=== PATIENT | male | born 1950 | race American Indian/Alaskan Native ===

== ENCOUNTER 2017-10-27 02:17 | Observation (INO) | payer MEDICARE ==
[2017-10-27] MEDS ORDERED: DILAUDID IV ONE (03:03)
[2017-10-27] MEDS ORDERED: ZOFRAN IV ONE (03:03)
--- NOTE | 2017-10-27 03:12 | Emergency Department Report ---
ED Chest Pain HPI - General Chief Complaint: Back Pain/Injury Stated Complaint: CHEST PAIN Time Seen by Provider: 10/27/17 03:07 Source: EMS Mode of arrival: Stretcher Limitations: No Limitations - History of Present Illness Initial Comments: 67-year-old male past medical history of esophageal stricture requiring dilation chronic back pain to the hospital complaining of back pain and chest pain. Patient has chronic back pain denies recent injury. He takes Percocet 10 /325 for pain. Despite taking his Percocet pain worsened this evening. Patient states that he had sharp pain in his chest that then radiated to his back. Patient received aspirin and nitroglycerin in route. He currently denies chest pain but the pain of mid back pain. No reports of nausea, vomiting , diaphoresis, shortness of breath, cough, fever, focal weakness, or numbness. Pain is 7/10 in intensity constant, sharp, worse with movement and deep inspiration. Patient repeatedly asking for pain medication and repeatedly stating he is cold upon arrival. [place] prescription drug monitoring site reviewed and patient has described 120 tablets of Percocet 10/[address] Olmedo with last prescription filled on 10/19/2017. - Related Data Home Medications Medication Instructions Recorded Confirmed Last Taken FLUoxetine HCL [FLUoxetine] 2.5 ml PO QDAY 04/20/14 10/27/17 04/20/14 hydrOXYzine HCL [Atarax] 25 mg PO QHS 04/20/14 10/27/17 04/20/14 Previous Rx's Medication Instructions Recorded Last Taken Type Lansoprazole Solutab [Prevacid 30 mg PO QDAY #30 tab 04/21/14 Unknown Rx Solutab] Amoxicillin/Potassium Clav 1 each PO BID #10 tablet 10/27/17 Unknown Rx [Augmentin 875-125 Tablet] Cyclobenzaprine HCl [Flexeril 5 MG 5 mg PO QHS #14 tablet 10/27/17 Unknown Rx TAB] Allergies Allergy/AdvReac Type Severity Reaction Status Date / Time No Known Allergies Allergy Verified 04/21/14 09:52 Heart Score - HEART Score History: Slightly suspicious EKG: Normal Age: > 65 Risk factors: 1-2 risk factors Troponin: < normal limit HEART Score: 3 ED Review of Systems ROS: Stated complaint: CHEST PAIN Other details as noted in HPI Comment: All other systems reviewed and negative ED Past Medical Hx - Past Medical History Previous Medical History?: No Additional medical history: pt denies any medical history at this time - Surgical History Past Surgical History?: Yes Additional Surgical History: scar to abdomen - Social History Smoking Status: Former Smoker - Medications Home Medications: Home Medications Medication Instructions Recorded Confirmed Last Taken Type FLUoxetine HCL [FLUoxetine] 2.5 ml PO QDAY 04/20/14 10/27/17 04/20/14 History hydrOXYzine HCL [Atarax] 25 mg PO QHS 04/20/14 10/27/17 04/20/14 History Lansoprazole Solutab [Prevacid 30 mg PO QDAY #30 tab 04/21/14 10/27/17 Unknown Rx Solutab] Amoxicillin/Potassium Clav 1 each PO BID #10 tablet 10/27/17 Unknown Rx [Augmentin 875-125 Tablet] Cyclobenzaprine HCl [Flexeril 5 MG 5 mg PO QHS #14 tablet 10/27/17 Unknown Rx TAB] ED Physical Exam - General Limitations: No Limitations - Other Other exam information: General: Distress secondary to pain patient repeatedly asking for medication Head exam: Atraumatic, normocephalic Eyes exam: Normal appearance ENT: Moist mucous membrane, normal oropharynx Neck exam: Normal inspection, full range of motion, no meningismus nontender Respiratory exam: Clear to auscultation bilateral, no wheezes, rales, crackles Cardiovascular: Normal rate and rhythm, chest wall nontender Abdomen: Soft, nondistended, and nontender, with normal bowel sounds, no rebound, or guarding Extremity: Full range of motion normal inspection no deformity Back: Normal Inspection, full range of motion, no tenderness back painful with movement but not reproducible on palp Neurologic: Alert, oriented x3, cranial nerves intact, no motor or sensory deficit Psychiatric: normal affect, normal mood Skin: Warm, dry, intact ED Course Vital Signs 10/27/17 10/27/17 10/27/17 02:20 02:26 02:30 Temperature 98.2 F Pulse Rate 92 H 81 78 Respiratory 20 19 16 Rate Blood Pressure 126/82 117/66 O2 Sat by Pulse 98 90 Oximetry 10/27/17 10/27/17 10/27/17 02:45 03:00 03:15 Temperature Pulse Rate 90 86 90 Respiratory 16 22 19 Rate Blood Pressure 126/82 122/74 120/77 O2 Sat by Pulse 92 93 92 Oximetry 10/27/17 10/27/17 10/27/17 03:30 03:45 04:00 Temperature Pulse Rate 94 H 99 H 87 Respiratory 21 21 15 Rate Blood Pressure 111/72 116/67 125/78 O2 Sat by Pulse 95 93 94 Oximetry 10/27/17 10/27/17 10/27/17 04:15 04:30 04:45 Temperature Pulse Rate 92 H 94 H 93 H Respiratory 19 16 18 Rate Blood Pressure 125/76 114/72 121/75 O2 Sat by Pulse Oximetry 10/27/17 10/27/17 10/27/17 07:32 08:00 08:15 Temperature 98.4 F Pulse Rate 91 H 97 H Respiratory 17 16 Rate Blood Pressure 110/71 102/72 O2 Sat by Pulse 92 95 Oximetry - Reevaluation(s) Reevaluation #1: 10/27/17 03:15 patient denies chest pain at this time only complaining of back pain JOSE score - Jose Score Age > 65: (1) Yes Aspirin use within the Past 7 Days: (0) No 3 or more CAD Risk Factors: (0) No 2 or more Angina events in past 24 hrs: (0) No Known CAD with more than 50% Stenosis: (0) No Elevated Cardiac Markers: (0) No ST Deviation Greater than 0.5mm: (0) No JOSE Score: 1 ED Medical Decision Making - Lab Data Result diagrams: 10/27/17 03:45 10/27/17 03:45 Lab Results 10/27/17 10/27/17 10/27/17 Range/Units 03:45 03:45 03:45 WBC 13.2 H (4.5-11.0) K/mm3 RBC 4.09 (3.65-5.03) M/mm3 Hgb 12.1 (11.8-15.2) gm/dl Hct 37.1 (35.5-45.6) % MCV 91 (84-94) fl MCH 30 (28-32) pg MCHC 33 (32-34) % RDW 12.5 L (13.2-15.2) % Plt Count 277 (140-440) K/mm3 Add Manual Diff Complete Total Counted 100 Seg Neutrophils % Educational Program Assistant Seg Neuts % (Manual) 75.0 H (40.0-70.0) % Band Neutrophils % 17.0 % Lymphocytes % (Manual) 3.0 L (13.4-35.0) % Reactive Lymphs % (Man) 0 % Monocytes % (Manual) 3.0 (0.0-7.3) % Eosinophils % (Manual) 2.0 (0.0-4.3) % Basophils % (Manual) 0 (0.0-1.8) % Metamyelocytes % 0 % Myelocytes % 0 % Promyelocytes % 0 % Blast Cells % 0 % Nucleated RBC % Not Reportable Seg Neutrophils # Man 9.9 H (1.8-7.7) K/mm3 Band Neutrophils # 2.2 K/mm3 Lymphocytes # (Manual) 0.4 L (1.2-5.4) K/mm3 Abs React Lymphs (Man) 0.0 K/mm3 Monocytes # (Manual) 0.4 (0.0-0.8) K/mm3 Eosinophils # (Manual) 0.3 (0.0-0.4) K/mm3 Basophils # (Manual) 0.0 (0.0-0.1) K/mm3 Metamyelocytes # 0.0 K/mm3 Myelocytes # 0.0 K/mm3 Promyelocytes # 0.0 K/mm3 Blast Cells # 0.0 K/mm3 WBC Morphology Not Reportable Hypersegmented Neuts Not Reportable Hyposegmented Neuts Not Reportable Hypogranular Neuts Not Reportable Smudge Cells Not Reportable Toxic Granulation Not Reportable Toxic Vacuolation Not Reportable Dohle Bodies Not Reportable Pelger-Huet Anomaly Not Reportable Ajit Rods Not Reportable Platelet Estimate Appears normal Clumped Platelets Not Reportable Plt Clumps, EDTA Not Reportable Large Platelets Not Reportable Giant Platelets Not Reportable Platelet Satelliting Not Reportable Plt Morphology Comment Not Reportable RBC Morphology Not Reportable Dimorphic RBCs Not Reportable Polychromasia Not Reportable Hypochromasia Not Reportable Poikilocytosis Not Reportable Anisocytosis Not Reportable Microcytosis Not Reportable Macrocytosis Not Reportable Spherocytes Not Reportable Pappenheimer Bodies Not Reportable Sickle Cells Not Reportable Target Cells Not Reportable Tear Drop Cells Not Reportable Ovalocytes Not Reportable Stomatocytes Few Helmet Cells Not Reportable Carrillo-[place] Bodies Not Reportable Laotto Rings Not Reportable Merrill Cells Not Reportable Bite Cells Not Reportable Crenated Cell Not Reportable Elliptocytes Not Reportable Acanthocytes (Spur) Not Reportable Rouleaux Not Reportable Hemoglobin C Crystals Not Reportable Schistocytes Not Reportable Malaria parasites Not Reportable Wes Bodies Not Reportable Hem Pathologist Commnt No PT 12.4 (12.2-14.9) Sec. INR 0.88 (0.87-1.13) Sodium 144 (137-145) mmol/L Potassium 4.0 (3.6-5.0) mmol/L Chloride 100.4 (98-107) mmol/L Carbon Dioxide 28 (22-30) mmol/L Anion Gap 20 mmol/L BUN 13 (9-20) mg/dL Creatinine 1.2 (0.8-1.5) mg/dL Estimated GFR > 60 ml/min BUN/Creatinine Ratio 11 % Glucose 114 H (75-100) mg/dL Calcium 9.6 (8.4-10.2) mg/dL Total Creatine Kinase (55-170) units/L CK-MB (CK-2) (0.0-4.0) ng/mL CK-MB (CK-2) Rel Index (0-4) Troponin T < 0.010 (0.00-0.029) ng/mL 10/27/17 Range/Units 03:45 WBC (4.5-11.0) K/mm3 RBC (3.65-5.03) M/mm3 Hgb (11.8-15.2) gm/dl Hct (35.5-45.6) % MCV (84-94) fl MCH (28-32) pg MCHC (32-34) % RDW (13.2-15.2) % Plt Count (140-440) K/mm3 Add Manual Diff Total Counted Seg Neutrophils % Seg Neuts % (Manual) (40.0-70.0) % Band Neutrophils % % Lymphocytes % (Manual) (13.4-35.0) % Reactive Lymphs % (Man) % Monocytes % (Manual) (0.0-7.3) % Eosinophils % (Manual) (0.0-4.3) % Basophils % (Manual) (0.0-1.8) % Metamyelocytes % % Myelocytes % % Promyelocytes % % Blast Cells % % Nucleated RBC % Seg Neutrophils # Man (1.8-7.7) K/mm3 Band Neutrophils # K/mm3 Lymphocytes # (Manual) (1.2-5.4) K/mm3 Abs React Lymphs (Man) K/mm3 Monocytes # (Manual) (0.0-0.8) K/mm3 Eosinophils # (Manual) (0.0-0.4) K/mm3 Basophils # (Manual) (0.0-0.1) K/mm3 Metamyelocytes # K/mm3 Myelocytes # K/mm3 Promyelocytes # K/mm3 Blast Cells # K/mm3 WBC Morphology Hypersegmented Neuts Hyposegmented Neuts Hypogranular Neuts Smudge Cells Toxic Granulation Toxic Vacuolation Dohle Bodies Pelger-Huet Anomaly Ajit Rods Platelet Estimate Clumped Platelets Plt Clumps, EDTA Large Platelets Giant Platelets Platelet Satelliting Plt Morphology Comment RBC Morphology Dimorphic RBCs Polychromasia Hypochromasia Poikilocytosis Anisocytosis Microcytosis Macrocytosis Spherocytes Pappenheimer Bodies Sickle Cells Target Cells Tear Drop Cells Ovalocytes Stomatocytes Helmet Cells Carrillo-[place] Bodies Laotto Rings Merrill Cells Bite Cells Crenated Cell Elliptocytes Acanthocytes (Spur) Rouleaux Hemoglobin C Crystals Schistocytes Malaria parasites Wes Bodies Hem Pathologist Commnt PT (12.2-14.9) Sec. INR (0.87-1.13) Sodium (137-145) mmol/L Potassium (3.6-5.0) mmol/L Chloride (98-107) mmol/L Carbon Dioxide (22-30) mmol/L Anion Gap mmol/L BUN (9-20) mg/dL Creatinine (0.8-1.5) mg/dL Estimated GFR ml/min BUN/Creatinine Ratio % Glucose (75-100) mg/dL Calcium (8.4-10.2) mg/dL Total Creatine Kinase 172 H (55-170) units/L CK-MB (CK-2) 2.4 (0.0-4.0) ng/mL CK-MB (CK-2) Rel Index 1.3 (0-4) Troponin T (0.00-0.029) ng/mL - EKG Data -: EKG Interpreted by Il EKG shows normal: sinus rhythm, axis (qrs -4), QRS complexes (qrsd 95), ST-T waves (no steim) Rate: normal (90) - EKG Data When compared to previous EKG there are: previous EKG unavailable - Radiology Data Radiology results: report reviewed EXAM: XR CHEST 1V AP HISTORY: Chest Pain TECHNIQUE: A portable upright view the chest was submitted. There are no previous studies available for comparison. FINDINGS: There is extensive airspace disease and atelectasis in the right lower lobe. There is additional patchy airspace disease in the left lower lobe. The heart is mildly enlarged. The lungs are not congested. There EKG leads overlying the chest wall. The bones and soft tissues otherwise appear well maintained. IMPRESSION: Bilateral lower lobe infiltrates compatible with pneumonia in the appropriate clinical setting. The right lower lobe is worse than the left lower lobe. EXAM: CT ANGIO CHEST HISTORY: back pain, b/l infiltrates,chest pain TECHNIQUE: A CT angiogram was performed following the intravenous injection of 100 cc of Omnipaque 350. Sagittal, rotational, and coronal MIP reconstructions were reviewed. There are no previous studies available for comparison. FINDINGS: There is no evidence of pulmonary embolus or aortic dissection. There is very mild atelectatic changes in the right lower lobe. 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 The lungs are not congested. The heart size is normal. Pericardial fluid is not seen. There is no evidence of adenopathy. In the upper abdomen there is a 3 cm cortical cyst in the left kidney. The adrenal glands are not enlarged. The skeletal structures otherwise well maintained. IMPRESSION: No evidence of pulmonary embolus, vascular congestion, or aortic dissection. Very mild atelectatic changes in the right lower lobe. No evidence of pneumonia or effusion. 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 It is the interposed colonic interposition that is causing the opacity in the right lung on the chest x-ray. The findings were discussed with Dr. Patricio at 6:21 a.m. on 10/27/2017. - Medical Decision Making chest pain ekg normal cxr ? b/l infiltrates but pt denies infectious sx Rocephin and Azithromycin pending ct angio chest pending chronic back pain improved after dilaudid pt has percocet 10 at home (120 pills filled on 10/19) Pt s/o to Dr Patricio, f/u cta chest Offer admission for significant pneumonia if confirmed on ct admit if other significant findings pt has been mentioning he has something planned for 11am and may not stay pt will be an ama if he leaves may prescribe outpt abx if he leaves but no pain meds. Will prefer to verify repeat trop neg prior to ama if pt willing to wait - Differential Diagnosis pneumonia, PE, disection, [place], chronic pain, Critical Care Time: No Critical care attestation.: If time is entered above; I have spent that time in minutes in the direct care of this critically ill patient, excluding procedure time. ED Disposition Clinical Impression: Chronic back pain, Chest pain Disposition: OP ADMIT IP TO THIS HOSP Is pt being admited?: Yes Condition: Stable Time of Disposition: 06:00
--- NOTE | 2017-10-27 03:31 | XRay Report ---
FINAL REPORT EXAM: XR CHEST 1V AP HISTORY: Chest Pain TECHNIQUE: A portable upright view the chest was submitted. There are no previous studies available for comparison. FINDINGS: There is extensive airspace disease and atelectasis in the right lower lobe. There is additional patchy airspace disease in the left lower lobe. The heart is mildly enlarged. The lungs are not congested. There EKG leads overlying the chest wall. The bones and soft tissues otherwise appear well maintained. IMPRESSION: Bilateral lower lobe infiltrates compatible with pneumonia in the appropriate clinical setting. The right lower lobe is worse than the left lower lobe.
[2017-10-27] MEDS ORDERED: ROCEPHIN/NS 1 GM/50 ML 1 GM/50 ML BAG IV ONE (03:35)
[2017-10-27] MEDS ORDERED: ZITHROMAX 500 MG in NACL 0.9% 250ML 250 ML IV ONE (03:35)
[2017-10-27] MEDS ORDERED: cefTRIAXone 1 GM in NACL 0.9% 20 ML IV ONE (03:35)
[2017-10-27 04:29] LABS: Hematocrit 37.1 % (35.5-45.6); Hemoglobin 12.1 gm/dl (11.8-15.2); Mean Corpuscular HGB Conc 33 % (32-34); Mean Corpuscular Hemoglobin 30 pg (28-32); Mean Corpuscular Volume 91 fl (84-94); Platelet Count 277 K/mm3 (140-440); Red Blood Count 4.09 M/mm3 (3.65-5.03); Red Cell Distribution Width 12.5 % (13.2-15.2)
[2017-10-27 04:42] LABS: INR 0.88 (0.87-1.13)
[2017-10-27 05:06] LABS: BUN/Creatinine Ratio 11; Blood Urea Nitrogen 13 mg/dL (9-20); Calcium 9.6 mg/dL (8.4-10.2); Hemolysis Index 6
[2017-10-27 05:07] LABS: Creatine Kinase MB 2.4 ng/mL (0.0-4.0)
[2017-10-27 05:26] LABS: Band Neutrophils # (Manual) 2.2 K/mm3; Basophils % (Manual) 0 % (0.0-1.8); Stomatocytes Few; Total Cells Counted 100
--- NOTE | 2017-10-27 06:34 | Cat Scan Report ---
FINAL REPORT EXAM: CT ANGIO CHEST HISTORY: back pain, b/l infiltrates,chest pain TECHNIQUE: A CT angiogram was performed following the intravenous injection of 100 cc of Omnipaque 350. Sagittal, rotational, and coronal MIP reconstructions were reviewed. There are no previous studies available for comparison. FINDINGS: There is no evidence of pulmonary embolus or aortic dissection. There is very mild atelectatic changes in the right lower lobe. 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 The lungs are not congested. The heart size is normal. Pericardial fluid is not seen. There is no evidence of adenopathy. In the upper abdomen there is a 3 cm cortical cyst in the left kidney. The adrenal glands are not enlarged. The skeletal structures otherwise well maintained. IMPRESSION: No evidence of pulmonary embolus, vascular congestion, or aortic dissection. Very mild atelectatic changes in the right lower lobe. No evidence of pneumonia or effusion. 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 It is the interposed colonic interposition that is causing the opacity in the right lung on the chest x-ray. The findings were discussed with Dr. Ptaricio at 6:21 a.m. on 10/27/2017.
[2017-10-27] MEDS ORDERED: ASPIRIN PO ONE (06:50)
[2017-10-27] MEDS ORDERED: MORPHINE IV PRN (08:15)
[2017-10-27] MEDS ORDERED: ZOFRAN IV PRN (08:15)
[2017-10-27] MEDS ORDERED: SODIUM CHLORIDE FLUSH SYRINGE 10 ML IV PRN (08:15)
[2017-10-27] MEDS ORDERED: TYLENOL PO PRN (08:15)
[2017-10-27] MEDS ORDERED: HABITROL TD ONE (08:17)
[2017-10-27] MEDS ORDERED: PERCOCET 5/325 PO PRN (08:19)
--- NOTE | 2017-10-27 08:20 | History and Physical Report ---
History of Present Illness Date of examination: 10/27/17 Date of admission: 10/27/17 Chief complaint: Chest pain History of present illness: Patient is a 67 year old male with past medical history of esophageal stricture requiring dilatation and chronic back pain presenting with chest pain rated a 7/ 10 in intensity and then radiated to the back with no associated odynophagia. The patient reported that the pain was not abeted by his regular Percocet. On arrival to the hospital he received aspirin and nitroglycerin. At the time of my evaluation the patient reports that his pain has improved. According to the ER physician note the [place] prescription drug monitoring site reviewed and patient has described 120 tablets of Percocet 10/[address] Olmedo with last prescription filled on 10/19/2017. Patient denies any nausea vomiting or diarrhea this time. ROS Constitutional: No fever, fatigue or weight loss. Skin: No rash. Eyes: No recent vision problems or eye pain. ENT: No congestion, ear pain, or sore throat. Endocrine: No thyroid problems. Cardiovascular: Chest pain Respiratory: No cough, shortness of breath, congestion, or wheezing. Gastrointestinal: No abdominal pain, nausea, vomiting, or diarrhea. Genitourinary: No dysuria. Musculoskeletal: No joint swelling. Neurologic: No seizures. Hematologic: No unusual bruising or bleeding. Psychiatric: No psychiatric problems, hallucinations or depression. All other systems reviewed and otherwise negative. Past History Past Medical History: hypertension, other (gerd, ) Past Surgical History: Other (gastroectomy-partial) Social history: smoking, full code. denies: IV drug use Family history: no significant family history Medications and Allergies Allergies Allergy/AdvReac Type Severity Reaction Status Date / Time No Known Allergies Allergy Verified 04/21/14 09:52 Home Medications Medication Instructions Recorded Confirmed Last Taken Type FLUoxetine HCL [FLUoxetine] 2.5 ml PO QDAY 04/20/14 10/27/17 04/20/14 History hydrOXYzine HCL [Atarax] 25 mg PO QHS 04/20/14 10/27/17 04/20/14 History Lansoprazole Solutab [Prevacid 30 mg PO QDAY #30 tab 04/21/14 10/27/17 Unknown Rx Solutab] Amoxicillin/Potassium Clav 1 each PO BID #10 tablet 10/27/17 Unknown Rx [Augmentin 875-125 Tablet] Cyclobenzaprine HCl [Flexeril 5 MG 5 mg PO QHS #14 tablet 10/27/17 Unknown Rx TAB] Active Meds: Active Medications Acetaminophen (Tylenol) 650 mg PO Q4H PRN PRN Reason: Pain MILD(1-3)/Fever >100.5/DOW Heparin Sodium (Porcine) (Heparin) 5,000 unit SUB-Q Q8HR LORNA Morphine Sulfate (Morphine) 2 mg IV Q4H PRN PRN Reason: Pain, Moderate (4-6) Nicotine (Habitrol) 21 mg TD ONCE ONE Stop: 10/27/17 08:18 Ondansetron HCl (Zofran) 4 mg IV Q8H PRN PRN Reason: Nausea And Vomiting Sodium Chloride (Sodium Chloride Flush Syringe 10 Ml) 10 ml IV BID LORNA Sodium Chloride (Sodium Chloride Flush Syringe 10 Ml) 10 ml IV PRN PRN PRN Reason: LINE FLUSH Exam - Physical Exam Narrative exam: VITAL SIGNS: Reviewed. GENERAL: The patient appeared well nourished and normally developed. Vital signs as documented. HEAD: No signs of head trauma. EYES: Pupils are equal. Extraocular motions intact. EARS: Hearing grossly intact. MOUTH: Oropharynx is normal. NECK: No adenopathy, no JVD. CHEST: Chest with clear breath sounds bilaterally. No wheezes, rales, or rhonchi. CARDIAC: Regular rate and rhythm. S1 and S2, without murmurs, gallops, or rubs. VASCULAR: No Edema. Peripheral pulses normal and equal in all extremities. ABDOMEN: Soft, without detectable tenderness. No sign of distention. No rebound or guarding, and no masses palpated. Bowel Sounds normal. MUSCULOSKELETAL: Good range of motion of all major joints. Extremities without clubbing, cyanosis or edema. NEUROLOGIC EXAM: Alert and oriented x 3. No focal sensory or strength deficits. Speech normal. Follows commands. PSYCHIATRIC: Mood normal. SKIN: No rash or lesions. - Constitutional Vitals: Temp Pulse Resp BP Pulse Ox 98.2 F 93 H 18 121/75 94 10/27/17 02:20 10/27/17 04:45 10/27/17 04:45 10/27/17 04:45 10/27/17 04:00 Results - Labs CBC & Chem 7: 10/27/17 03:45 10/27/17 03:45 Labs: Laboratory Last Values WBC 13.2 K/mm3 (4.5-11.0) H 10/27/17 03:45 RBC 4.09 M/mm3 (3.65-5.03) 10/27/17 03:45 Hgb 12.1 gm/dl (11.8-15.2) 10/27/17 03:45 Hct 37.1 % (35.5-45.6) 10/27/17 03:45 MCV 91 fl (84-94) 10/27/17 03:45 MCH 30 pg (28-32) 10/27/17 03:45 MCHC 33 % (32-34) 10/27/17 03:45 RDW 12.5 % (13.2-15.2) L 10/27/17 03:45 Plt Count 277 K/mm3 (140-440) 10/27/17 03:45 Add Manual Diff Complete 10/27/17 03:45 Total Counted 100 10/27/17 03:45 Seg Neutrophils % Managing Director [employer] 10/27/17 03:45 Seg Neuts % (Manual) 75.0 % (40.0-70.0) H 10/27/17 03:45 Band Neutrophils % 17.0 % 10/27/17 03:45 Lymphocytes % (Manual) 3.0 % (13.4-35.0) L 10/27/17 03:45 Reactive Lymphs % (Man) 0 % 10/27/17 03:45 Monocytes % (Manual) 3.0 % (0.0-7.3) 10/27/17 03:45 Eosinophils % (Manual) 2.0 % (0.0-4.3) 10/27/17 03:45 Basophils % (Manual) 0 % (0.0-1.8) 10/27/17 03:45 Metamyelocytes % 0 % 10/27/17 03:45 Myelocytes % 0 % 10/27/17 03:45 Promyelocytes % 0 % 10/27/17 03:45 Blast Cells % 0 % 10/27/17 03:45 Nucleated RBC % Not Reportable 10/27/17 03:45 Seg Neutrophils # Man 9.9 K/mm3 (1.8-7.7) H 10/27/17 03:45 Band Neutrophils # 2.2 K/mm3 10/27/17 03:45 Lymphocytes # (Manual) 0.4 K/mm3 (1.2-5.4) L 10/27/17 03:45 Abs React Lymphs (Man) 0.0 K/mm3 10/27/17 03:45 Monocytes # (Manual) 0.4 K/mm3 (0.0-0.8) 10/27/17 03:45 Eosinophils # (Manual) 0.3 K/mm3 (0.0-0.4) 10/27/17 03:45 Basophils # (Manual) 0.0 K/mm3 (0.0-0.1) 10/27/17 03:45 Metamyelocytes # 0.0 K/mm3 10/27/17 03:45 Myelocytes # 0.0 K/mm3 10/27/17 03:45 Promyelocytes # 0.0 K/mm3 10/27/17 03:45 Blast Cells # 0.0 K/mm3 10/27/17 03:45 WBC Morphology Not Reportable 10/27/17 03:45 Hypersegmented Neuts Not Reportable 10/27/17 03:45 Hyposegmented Neuts Not Reportable 10/27/17 03:45 Hypogranular Neuts Not Reportable 10/27/17 03:45 Smudge Cells Not Reportable 10/27/17 03:45 Toxic Granulation Not Reportable 10/27/17 03:45 Toxic Vacuolation Not Reportable 10/27/17 03:45 Dohle Bodies Not Reportable 10/27/17 03:45 Pelger-Huet Anomaly Not Reportable 10/27/17 03:45 Ajit Rods Not Reportable 10/27/17 03:45 Platelet Estimate Appears normal 10/27/17 03:45 Clumped Platelets Not Reportable 10/27/17 03:45 Plt Clumps, EDTA Not Reportable 10/27/17 03:45 Large Platelets Not Reportable 10/27/17 03:45 Giant Platelets Not Reportable 10/27/17 03:45 Platelet Satelliting Not Reportable 10/27/17 03:45 Plt Morphology Comment Not Reportable 10/27/17 03:45 RBC Morphology Not Reportable 10/27/17 03:45 Dimorphic RBCs Not Reportable 10/27/17 03:45 Polychromasia Not Reportable 10/27/17 03:45 Hypochromasia Not Reportable 10/27/17 03:45 Poikilocytosis Not Reportable 10/27/17 03:45 Anisocytosis Not Reportable 10/27/17 03:45 Microcytosis Not Reportable 10/27/17 03:45 Macrocytosis Not Reportable 10/27/17 03:45 Spherocytes Not Reportable 10/27/17 03:45 Pappenheimer Bodies Not Reportable 10/27/17 03:45 Sickle Cells Not Reportable 10/27/17 03:45 Target Cells Not Reportable 10/27/17 03:45 Tear Drop Cells Not Reportable 10/27/17 03:45 Ovalocytes Not Reportable 10/27/17 03:45 Stomatocytes Few 10/27/17 03:45 Helmet Cells Not Reportable 10/27/17 03:45 [place] Bodies Not Reportable 10/27/17 03:45 [place] Rings Not Reportable 10/27/17 03:45 [place]ill Cells Not Reportable 10/27/17 03:45 Bite Cells Not Reportable 10/27/17 03:45 Crenated Cell Not Reportable 10/27/17 03:45 Elliptocytes Not Reportable 10/27/17 03:45 Acanthocytes (Spur) Not Reportable 10/27/17 03:45 Rouleaux Not Reportable 10/27/17 03:45 Hemoglobin C Crystals Not Reportable 10/27/17 03:45 Schistocytes Not Reportable 10/27/17 03:45 Malaria parasites Not Reportable 10/27/17 03:45 Wes Bodies Not Reportable 10/27/17 03:45 Hem Pathologist Commnt No 10/27/17 03:45 PT 12.4 Sec. (12.2-14.9) 10/27/17 03:45 INR 0.88 (0.87-1.13) 10/27/17 03:45 Sodium 144 mmol/L (137-145) 10/27/17 03:45 Potassium 4.0 mmol/L (3.6-5.0) 10/27/17 03:45 Chloride 100.4 mmol/L (98-107) 10/27/17 03:45 Carbon Dioxide 28 mmol/L (22-30) 10/27/17 03:45 Anion Gap 20 mmol/L 10/27/17 03:45 BUN 13 mg/dL (9-20) 10/27/17 03:45 Creatinine 1.2 mg/dL (0.8-1.5) 10/27/17 03:45 Estimated GFR > 60 ml/min 10/27/17 03:45 BUN/Creatinine Ratio 11 % 10/27/17 03:45 Glucose 114 mg/dL (75-100) H 10/27/17 03:45 Calcium 9.6 mg/dL (8.4-10.2) 10/27/17 03:45 Total Creatine Kinase 172 units/L (55-170) H 10/27/17 03:45 CK-MB (CK-2) 2.4 ng/mL (0.0-4.0) 10/27/17 03:45 CK-MB (CK-2) Rel Index 1.3 (0-4) 10/27/17 03:45 Troponin T < 0.010 ng/mL (0.00-0.029) 10/27/17 06:35 - Imaging and Cardiology Chest x-ray: image reviewed (no acute pathology) CT scan - chest: image reviewed (no pulmonary embolism) Assessment and Plan Assessment and plan: Patient is a 67 year old male with past medical history of esophageal stricture requiring dilatation and chronic back pain presenting with chest pain rated a 7/ 10 in intensity and then radiated to the back with no associated odynophagia. The patient reported that the pain was not abeted by his regular Percocet. On arrival to the hospital he received aspirin and nitroglycerin. At the time of my evaluation the patient reports that his pain has improved. According to the ER physician note the [place] prescription drug monitoring site reviewed and patient has described 120 tablets of Percocet [address] Olmedo with last prescription filled on 10/19/2017. Patient denies any nausea vomiting or diarrhea this time. Atypical chest pain Tobacco abuse disorder Chronic abdominal pain\and chronic back pain Continuous opiate dependence Plan Admit to telemetry START chest pain protocol VTE MARKIE ruled out We'll discharge if stress test is negative Advance Directives: Yes Plan of care discussed with patient/family: Yes
[2017-10-27] MEDS ORDERED: SODIUM CHLORIDE FLUSH SYRINGE 10 ML IV SCH (10:00)
[2017-10-27] MEDS ORDERED: PROTONIX PO SCH (10:00)
[2017-10-27] MEDS ORDERED: NEURONTIN PO SCH (10:00)
[2017-10-27] MEDS ORDERED: LEXISCAN IV ONE ×2 (10:01→10:06)
--- NOTE | 2017-10-27 13:35 | Discharge Summary ---
Providers - Providers Date of Admission: 10/27/17 08:15 Date of discharge: 10/27/17 Attending physician: ADELAIDA LEMOS MD Hospitalization Reason for admission: chest pain Condition: Stable Hospital course: Patient is a 67 year old male with past medical history of esophageal stricture requiring dilatation and chronic back pain presenting with chest pain rated a 7/ 10 in intensity and then radiated to the back with no associated odynophagia. The patient reported that the pain was not abeted by his regular Percocet. On arrival to the hospital he received aspirin and nitroglycerin. At the time of my evaluation the patient reports that his pain has improved. According to the ER physician note the [place] prescription drug monitoring site reviewed and patient has described 120 tablets of Percocet 10/[address] Olmedo with last prescription filled on 10/19/2017. Patient denies any nausea vomiting or diarrhea this time. On admission patient proceeded to have CT of the chest which was negative for pulmonary embolism. Patient also proceeded to have a stress test which was read as low risk. Patient's chest pain had resolved with no recurrence. Blood pressure better controlled. Patient was given counseling on tobacco use disorder and need to quit. Also on blood pressure management the patient verbalized understanding although refused to choose a date to quit tobacco use. Is clinically stable at this point for discharge recommended to follow up with his primary care doctor at his [employer] [facility] Atypical chest pain secondary to costochondritis Hypertension Tobacco abuse disorder Chronic abdominal pain\and chronic back pain Continuous opiate dependence Disposition: DC-01 TO HOME OR SELFCARE Time spent for discharge: 35 MINS Core Measure Documentation - Palliative Care Palliative Care/ Comfort Measures: Not Applicable - Core Measures Any of the following diagnoses?: none - VTE Discharge Requirements Deep Vein Thrombosis/Pulmonary Embolism Present on Admission: No Exam - Physical Exam Narrative exam: VITAL SIGNS: Reviewed. GENERAL: The patient appeared well nourished and normally developed. Vital signs as documented. HEAD: No signs of head trauma. EYES: Pupils are equal. Extraocular motions intact. EARS: Hearing grossly intact. MOUTH: Oropharynx is normal. NECK: No adenopathy, no JVD. CHEST: Chest with clear breath sounds bilaterally. No wheezes, rales, or rhonchi. CARDIAC: Regular rate and rhythm. S1 and S2, without murmurs, gallops, or rubs. VASCULAR: No Edema. Peripheral pulses normal and equal in all extremities. ABDOMEN: Soft, without detectable tenderness. No sign of distention. No rebound or guarding, and no masses palpated. Bowel Sounds normal. MUSCULOSKELETAL: Good range of motion of all major joints. Extremities without clubbing, cyanosis or edema. NEUROLOGIC EXAM: Alert and oriented x 3. No focal sensory or strength deficits. Speech normal. Follows commands. PSYCHIATRIC: Mood normal. SKIN: No rash or lesions. - Constitutional Vitals: Temp Pulse Resp BP Pulse Ox 99.8 F H 90 16 98/57 96 10/27/17 12:15 10/27/17 12:15 10/27/17 12:15 10/27/17 12:15 10/27/17 12:15 Plan Activity: advance as tolerated, fall precautions Diet: low cholesterol Special Instructions: record daily BP diary Follow up with: JANINE ENG MD [Staff Physician] - 7 Days PRIMARY CARE, [Referring] - 3-5 Days Prescriptions: Cyclobenzaprine HCl [Flexeril 5 MG TAB] 5 mg PO QHS #14 tablet Amoxicillin/Potassium Clav [Augmentin 875-125 Tablet] 1 each PO BID #10 tablet
[2017-10-27] MEDS ORDERED: HEPARIN SUB-Q SCH (14:00)
[2017-10-27 16:48] VITALS: BP 104/67
--- NOTE | 2017-10-27 19:53 | Treadmill Report ---
NUCLEAR PERFUSION SCAN REFERRING PHYSICIAN: Bossman Garvin M.D. PROTOCOL: The patient was brought to the catheterization lab in a post-absorptive state, given 10 mCi of technetium 99m at rest. The patient underwent rest imaging. The patient underwent Lexiscan stress test. At peak stress, the patient was given 26 mCi of technetium 99m. Shortly thereafter, the patient underwent stress imaging. Raw imaging reveals mild GI artifact, no significant motion artifact. SPECT imaging examined carefully in the horizontal long axis, vertical long axis, short axis views. There is normal homogenous uptake of radioisotope in all reported segments. No evidence of significant fixed or reversible perfusion defects suggestive of prior infarction or ischemia. Gated wall motion reveals normal systolic thickening, calculated ejection fraction is 73%, no TID. CONCLUSIONS: 1. Normal myocardial perfusion scan without evidence of active ischemia or prior infarction. 2. Normal left ventricular systolic performance without evidence of transient ischemic dilatation or stress-induced segmental wall motion abnormalities. JOB# [id number] MARIELENA/JASKARAN
== END 2017-10-27 16:34 | disposition home or self-care (01) ==
LOC: ED 02:17 → INTOOBSV 08:15 → 4A 08:15
PROVIDERS: ADMIT Internal Medicine; ATTEND Internal Medicine
DX: R07.89 Other chest pain (principal); M54.9 Dorsalgia, unspecified; G89.29 Other chronic pain; I10 Essential (primary) hypertension; F11.20 Opioid dependence, uncomplicated; Z90.3 Acquired absence of stomach [part of]; Z87.891 Personal history of nicotine dependence
CPT/HCPCS: 36415; 71045; 71275; 78452; 80048; 82550; 82553; 83880; 84484; 85007; 85025; 85610; 87040; 93005; 93010; 93017; 96365; 96375; A9502; G0378; J0456; J0696; J1170; J2405; J2785; J7050; Q9967